=== PATIENT | male | born 1950 | race African-American/Black ===

== ENCOUNTER 2018-12-19 23:58 | Inpatient (IN) | payer MEDICARE, BC ==
[~2018-12-19] VITALS: Ht 172.7 cm; Wt 99.3 kg
[2018-12-20] MEDS ORDERED: SODIUM CHLORIDE 0.9% 1,000 ML IV ONE (03:28)
[2018-12-20] MEDS ORDERED: ONDANSETRON HCL 4MG/2ML INJ IV STA (03:28)
[2018-12-20] MEDS ORDERED: MORPHINE SULFATE 10 MG/ML CPJ IV ONE (03:30)
[2018-12-20 03:59] LABS: BASOPHILS % 0.2 % (0.0-2.0); HEMATOCRIT. 28.8 % (42.0-52.0); HEMOGLOBIN. 9.4 g/dL (14.0-18.0); LYMPHOCYTES % 8.9 % (20.0-50.0); MEAN CORPUSCULAR HEMOGLOBIN 27.3 pg (28.0-32.0); MEAN PLATELET VOLUME 8.2 fl (7.4-10.4); MONOCYTES % 5.9 % (2.0-8.0); PLATELET 154 x1000/uL (130-400); RED BLOOD CELL COUNT 3.42 mill/uL (4.7-6.1); RED CELL DISTRIBUTION WIDTH 14.8 % (11.6-14.6)
[2018-12-20 04:03] LABS: CHLORIDE 124 mEq/L (98-107)
[2018-12-20 04:13] LABS: INR 1.4; PROTHROMBIN TIME 13.7 sec (9.1-11.1)
[2018-12-20] MEDS ORDERED: IOHEXOL-300 100 ML BOTTLE ONE (05:57)
[2018-12-20 06:25] LABS: CLARITY URINE CLEAR (CLEAR); COLOR URINE YELLOW (YELLOW); KETONES URINE 1+ (NEGATIVE); LEUKOCYTE ESTERASE URINE NEGATIVE (NEGATIVE); NITRITE URINE NEGATIVE (NEGATIVE); OCCULT BLOOD URINE NEGATIVE (NEGATIVE); PROTEIN URINE NEGATIVE (NEGATIVE)
[2018-12-20] MEDS ORDERED: SODIUM CHLORIDE 0.9% 1,000 ML IV SCH (07:12)
[2018-12-20] MEDS ORDERED: HYDROMORPHONE HCL/PF 2MG/ML CPJ IV PRN (07:15)
[2018-12-20] MEDS ORDERED: ONDANSETRON HCL 4MG/2ML INJ IV PRN (07:15)
[2018-12-20] MEDS ORDERED: ACETAMINOPHEN 325MG TABLET PO PRN (07:15)
[2018-12-20] MEDS ORDERED: LORAZEPAM 2MG/ML CPJ IV PRN (07:15)
[2018-12-20] MEDS ORDERED: METRONIDAZOLE 500 MG PREMIX 100 ML IV SCH (07:30)
[2018-12-20] MEDS ORDERED: POTASSIUM CHLORIDE INJ 40 MEQ in DEXT 5% WATER 250 ML IV SCH (10:00)
[2018-12-20] MEDS ORDERED: LEVOFLOXACIN 500MG PREMIX 100 ML IV SCH (10:00)
[2018-12-20] MEDS ORDERED: ENOXAPARIN 40MG/0.4ML SYR SUBCUT SCH (10:30)
[2018-12-20 14:09] LABS: *AMPHETAMINES SCREEN URINE NEGATIVE (NEGATIVE); *BARBITURATES SCREEN URINE NEGATIVE (NEGATIVE); *BENZODIAZEPINES SCREEN URINE NEGATIVE (NEGATIVE); *COCAINE SCREEN URINE NEGATIVE (NEGATIVE); METHADONE URINE SCREEN NEGATIVE (NEGATIVE); OPIATES URINE SCREEN PRESUMTIVE POSITIVE (NEGATIVE)
[2018-12-20 14:10] LABS: CANNABINOID URINE SCREEN NEGATIVE (NEGATIVE); PHENCYCLIDINE URINE SCREEN NEGATIVE (NEGATIVE)
[2018-12-20 20:51] VITALS: BP 126/55
[2018-12-20] MEDS: METRONIDAZOLE 500 MG PREMIX 100 ML IV SCH (22:32)
[2018-12-20] MEDS: SODIUM CHLORIDE 0.9% 1,000 ML IV SCH (22:32)
[2018-12-20] MEDS: ENOXAPARIN 40MG/0.4ML SYR SUBCUT SCH (22:32)
[2018-12-20 23:50] VITALS: BP 124/56
[2018-12-21] MEDS ORDERED: NAPR-681 MT
[2018-12-21] MEDS ORDERED: TIZA2CAP7 PO
[2018-12-21 03:52] VITALS: BP 141/61
[2018-12-21] MEDS: METRONIDAZOLE 500 MG PREMIX 100 ML IV SCH ×3 (05:35→21:02)
[2018-12-21 07:04] LABS: BASOPHILS % 0.3 % (0.0-2.0); EOSINOPHILS % 1.6 % (0.0-5.0); HEMATOCRIT. 42.1 % (42.0-52.0); LYMPHOCYTES % 20.6 % (20.0-50.0); MEAN CORPUSCULAR HEMOGLOBIN 27.5 pg (28.0-32.0); MEAN PLATELET VOLUME 9.3 fl (7.4-10.4); MONOCYTES % 12.3 % (2.0-8.0); NEUTROPHILS % 65.2 % (40.0-76.0); PLATELET 225 x1000/uL (130-400); RED BLOOD CELL COUNT 5.07 mill/uL (4.7-6.1); RED CELL DISTRIBUTION WIDTH 14.5 % (11.6-14.6)
[2018-12-21 08:00] VITALS: BP 113/50
[2018-12-21] MEDS: LEVOFLOXACIN 500MG PREMIX 100 ML IV SCH (08:58)
[2018-12-21] MEDS: SODIUM CHLORIDE 0.9% 1,000 ML IV SCH ×2 (09:00→20:57)
[2018-12-21 12:00] VITALS: BP 127/54
[2018-12-21 12:04] LABS: CHLORIDE 106 mEq/L (98-107)
[2018-12-21 16:00] VITALS: BP 111/44
[2018-12-21 20:00] VITALS: BP 109/43
[2018-12-21] MEDS: ENOXAPARIN 40MG/0.4ML SYR SUBCUT SCH (20:56)
[2018-12-21 23:58] VITALS: BP 108/59
[2018-12-22 04:00] VITALS: BP 114/50
[2018-12-22] MEDS: SODIUM CHLORIDE 0.9% 1,000 ML IV SCH (04:58)
[2018-12-22] MEDS: METRONIDAZOLE 500 MG PREMIX 100 ML IV SCH ×3 (05:00→21:38)
[2018-12-22] MEDS ORDERED: SKIN ADHESIVE 0.7 GM EA TOP ONE (06:40)
[2018-12-22] MEDS ORDERED: BUPIVACAINE HCL 0.5% (5MG/ML) 50ML ONE (06:40)
[2018-12-22] MEDS ORDERED: NEOSTIGMINE METHYLSULFATE 1MG/ML 10 ML VIAL ONE (06:52)
[2018-12-22] MEDS ORDERED: PROPOFOL 200MG/20ML VIAL IV ONE (06:52)
[2018-12-22] MEDS ORDERED: FENTANYL CITRATE/PF 50MCG/ML 2ML VIAL ONE (06:52)
[2018-12-22] MEDS ORDERED: MIDAZOLAM HCL 2 MG/2 ML VIAL ONE (06:52)
[2018-12-22] MEDS ORDERED: GLYCOPYRROLATE 0.2 MG/ML 2ML VIAL ONE (06:53)
[2018-12-22] MEDS ORDERED: LIDOCAINE HCL/PF 1% 10 MG/ML 5ML VIAL ONE (06:54)
[2018-12-22] MEDS ORDERED: ROCURONIUM BROMIDE 10MG/ML VIAL 5ML IV ONE (06:55)
[2018-12-22] MEDS ORDERED: CEFAZOLIN SODIUM 1000MG/VIAL ONE (06:59)
[2018-12-22 07:15] LABS: BASOPHILS % 0.9 % (0.0-2.0); HEMATOCRIT. 40.6 % (42.0-52.0); HEMOGLOBIN. 13.6 g/dL (14.0-18.0); LYMPHOCYTES % 30.3 % (20.0-50.0); MEAN CORPUSCULAR HEMOGLOBIN 27.6 pg (28.0-32.0); MEAN CORPUSCULAR VOLUME 82.5 fL (80.0-94.0); MEAN PLATELET VOLUME 8.8 fl (7.4-10.4); MONOCYTES % 11.6 % (2.0-8.0); NEUTROPHILS % 52.2 % (40.0-76.0); PLATELET 202 x1000/uL (130-400); RED BLOOD CELL COUNT 4.92 mill/uL (4.7-6.1); RED CELL DISTRIBUTION WIDTH 14.3 % (11.6-14.6)
[2018-12-22] MEDS ORDERED: ONDANSETRON HCL 4MG/2ML INJ IV PRN (07:15)
[2018-12-22] MEDS ORDERED: MORPHINE SULFATE 4 MG/ML CPJ (NOT FOR IM USE) IV PRN (07:15)
[2018-12-22] MEDS ORDERED: HYDROCODONE/ACETAMINOPHEN 5/325MG TABLET PO PRN ×2 (07:15)
[2018-12-22 08:00] LABS: CHLORIDE 111 mEq/L (98-107)
[2018-12-22] MEDS: LEVOFLOXACIN 500MG PREMIX 100 ML IV SCH (09:00)
[2018-12-22] MEDS ORDERED: MEPERIDINE HCL/PF 25MG/ML CPJ IV PRN (09:30)
[2018-12-22] MEDS ORDERED: HYDROMORPHONE HCL/PF 2MG/ML CPJ IV PRN ×2 (09:30→14:34)
[2018-12-22] MEDS ORDERED: METOCLOPRAMIDE HCL 10MG/2ML VIAL IV PRN (09:30)
[2018-12-22] MEDS ORDERED: HYDROMORPHONE HCL/PF 2MG/ML CPJ ONE (09:38)
[2018-12-22 12:00] VITALS: BP 136/54
[2018-12-22] MEDS: DEXT 5%/0.45% NACL KCL 20MEQ/L 1,000 ML IV SCH ×2 (14:25→20:41)
[2018-12-22 20:00] VITALS: BP 131/63
[2018-12-22] MEDS: ENOXAPARIN 40MG/0.4ML SYR SUBCUT SCH (20:41)
[2018-12-23] VITALS: BP 126/56
[2018-12-23 04:00] VITALS: BP 112/57
[2018-12-23] MEDS: METRONIDAZOLE 500 MG PREMIX 100 ML IV SCH ×2 (05:27→14:42)
[2018-12-23] MEDS: DEXT 5%/0.45% NACL KCL 20MEQ/L 1,000 ML IV SCH (05:28)
[2018-12-23 07:59] LABS: BASOPHILS % 0.5 % (0.0-2.0); EOSINOPHILS % 0.8 % (0.0-5.0); HEMATOCRIT. 42.4 % (42.0-52.0); HEMOGLOBIN. 14.1 g/dL (14.0-18.0); LYMPHOCYTES % 15.5 % (20.0-50.0); MEAN CORPUSCULAR HEMOGLOBIN 27.5 pg (28.0-32.0); MEAN CORPUSCULAR VOLUME 82.8 fL (80.0-94.0); MEAN PLATELET VOLUME 8.9 fl (7.4-10.4); MONOCYTES % 12.2 % (2.0-8.0); PLATELET 214 x1000/uL (130-400); RED BLOOD CELL COUNT 5.12 mill/uL (4.7-6.1); RED CELL DISTRIBUTION WIDTH 14.4 % (11.6-14.6)
[2018-12-23 08:18] VITALS: BP 130/66
[2018-12-23 09:48] LABS: CHLORIDE 106 mEq/L (98-107)
[2018-12-23] MEDS: LEVOFLOXACIN 500MG PREMIX 100 ML IV SCH (10:02)
[2018-12-23 11:28] VITALS: BP 113/59
[2018-12-23 16:24] VITALS: BP 121/61
[2018-12-23 16:36] VITALS: BP 121/61
[2018-12-24] MEDS ORDERED: LEVOFLOXACIN 500MG PREMIX 100 ML IV SCH (09:00)
== END 2018-12-23 17:31 | DRG 417 ==
LOC: ER 23:58 → EDBEDREQ 12-20 06:28 → SUPCPDRO 12-20 07:12 → 6WST 12-20 18:26 → ENRESERV 12-20 20:00
PROVIDERS: ADMIT Internal Medicine Nephrology; ATTEND Internal Medicine Nephrology
PROC: 0FT44ZZ Resection of Gallbladder, Percutaneous Endoscopic Approach (ICD-10-PCS; principal; 2018-12-22)
DX: K80.00 Calculus of gallbladder with acute cholecystitis without obstruction (principal); E43 Unspecified severe protein-calorie malnutrition; E87.0 Hyperosmolality and hypernatremia; E66.9 Obesity, unspecified; E87.5 Hyperkalemia; E87.6 Hypokalemia; E87.8 Other disorders of electrolyte and fluid balance, not elsewhere classified; Z68.33 Body mass index [BMI] 33.0-33.9, adult; Z85.46 Personal history of malignant neoplasm of prostate; Z90.49 Acquired absence of other specified parts of digestive tract; Z71.3 Dietary counseling and surveillance
CPT/HCPCS: 36415; 71045; 73706; 74177; 76705; 78227; 80048; 80076; 80305; 83605; 83735; 84484; 88304; 93005; 96365; 96366; 96375; 99284; 99285; A9537; J0690; J1170; J1650; J1956; J2250; J2270; J2405; J2704; J2710; J3010; J3480; J3490; J7030; J7060; Q9967